=== PATIENT | female | born 1990 | race Two or more races ===

== ENCOUNTER 2020-12-25 11:57 | Emergency (ER) | payer OTHER ==
[~2020-12-25] VITALS: Ht 165.1 cm; Wt 72.6 kg
[2020-12-25] MEDS ORDERED: SINGULAIR 10MG10 MG PO (12:23)
== END 2020-12-25 18:19 | disposition home or self-care (01) ==
LOC: ER 11:57
DX: R10.31 Right lower quadrant pain (principal)